=== PATIENT | female | born 1985 | race Caucasian/White ===

== ENCOUNTER → 2024-03-08 10:30 | Outpatient (BNVA) | payer BC, SELFPAY | PROVIDERS: Family Provider Nurse Practitioner Family; PCP Nurse Practitioner Family; Visit Provider Nurse Practitioner Family | DX: E03.9 Hypothyroidism, unspecified (principal); L29.9 Pruritus, unspecified | CPT/HCPCS: 80053; 84439; 84443; 85025 ==